=== PATIENT | male | born 1970 | race Hispanic/Latino ===

== ENCOUNTER 2023-06-10 07:47 | Emergency (ER) | payer SELFPAY | END 2023-06-10 09:21 | disposition home or self-care (01) | LOC: NAV ERS 07:47 | DX: J11.1 Influenza due to unidentified influenza virus with other respiratory manifestations (principal) | CPT/HCPCS: 87635; 87804; 99284 ==

== ENCOUNTER 2024-06-25 09:05 | Emergency (ER) | payer SELFPAY ==
[2024-06-25] MEDS ORDERED: Ketorolac Tromethamine 30 MG (1 mL) VIAL ONE (09:36)
[2024-06-25] MEDS ORDERED: Ondansetron PF 4 MG/2 ML Vial ONE (09:36)
[2024-06-25] MEDS ORDERED: Sodium Chloride 0.9% 1,000 ML ONE (09:36)
[2024-06-25 10:16] LABS: ALT (SGPT) 26 U/L (Less than 45); AST (SGOT) 32 U/L (11-34); Albumin 4.3 g/dL (3.1-4.5); Alkaline Phosphatase 80 U/L (40-110); Anion Gap 14 mmol/L (10-20); BUN (Urea Nitrogen) 19 mg/dL (8.4-25.7); Bilirubin, Total 0.8 mg/dL (0.3-1.2); Calc. Creatinine Clearance 0 mL/min (70-130); Calcium 9.7 mg/dL (7.8-10.44); Carbon Dioxide 26 mmol/L (22-29); Chloride 103 mmol/L (98-107); Estimated GFR 105; Globulin 3.6 g/dL (2.4-3.5); Glucose 162 mg/dL (70-105); Magnesium 2.4 mg/dL (1.6-2.6); Potassium 4.3 mmol/L (3.5-5.1); Protein, Total 7.9 g/dL (6.0-8.3); Sodium 139 mmol/L (136-145)
[2024-06-25 10:28] LABS: #Basophils 0.1 thou/uL (0.0-0.2); #Lymphocytes 1.8 thou/uL (1.20-3.40); #Monocytes 0.8 thou/uL (0.11-0.59); #Neutrophils 8.2 thou/uL (1.40-6.50); %Basophils 0.5 % (0.0-1.0); %Eosinophils 0.4 % (0.0-10.0); %Lymphocytes 16.5 % (21.0-51.0); %Monocytes 7.5 % (0.0-10.0); %Neutrophils 75.1 % (42.0-75.0); Hematocrit 54.6 % (42.0-52.0); Hemoglobin 16.8 g/dL (14.0-18.0); Mean Corpuscular HGB CONC 30.7 g/dL (32.0-36.0); Mean Corpuscular Hemoglobin 28.9 pg (27.0-31.0); Mean Corpuscular Volume 94.1 fl (78.0-98.0); Platelet Count 259 10x3/uL (130-400); RBC Distribution Width 12.2 % (11.5-14.5)
== END 2024-06-25 11:35 | disposition home or self-care (01) ==
LOC: NAV ERS 09:05
DX: B34.9 Viral infection, unspecified (principal); F17.290 Nicotine dependence, other tobacco product, uncomplicated
CPT/HCPCS: 71045; 80053; 83735; 85025; 93005; 96361; 96374; 96375; J1885; J2405; J7030